=== PATIENT | male | born 1950 | race Caucasian/White ===

== ENCOUNTER 2019-04-02 15:59 | Emergency (ER) | payer SELFPAY ==
[~2019-04-02] VITALS: Ht 167.6 cm; Wt 70.5 kg
[~2019-04-02 15:59] MED LIST: NO HOME MEDICATIONS
[2019-04-02 16:29] VITALS: TEMP 98.6
[2019-04-02] MEDS ORDERED: CATAPRES 0.1MG0.1 MG PO (19:05)
[2019-04-02] MEDS ORDERED: AFRIN 15 ML15 ML NS (19:28)
[2019-04-02 19:40] VITALS: BP 165/98; PULSE 61
== END 2019-04-02 19:40 | disposition home or self-care (01) ==
LOC: COL.ER 15:59
DX: R04.0 Epistaxis (principal)

== ENCOUNTER 2020-11-15 08:50 | Inpatient (IN) | payer OTHER ==
[~2020-11-15] VITALS: Ht 170.2 cm; Wt 56.8 kg
[~2020-11-15 08:50] MED LIST changes: +AFRIN 15 ML15 ML NS; +CATAPRES 0.1MG0.1 MG PO
[2020-11-15 09:24] LABS: HEMATOCRIT 43.3 % (42.0-52.0); HEMOGLOBIN 14.7 g/dl (13.5-18.0); MEAN CELL VOLUME 88 fl (80.0-100.0); MEAN CORPUSCULAR HEMOGLOBIN 30 pg (27.0-31.0); MEAN CORPUSCULAR HGB CONC 34 g/dl (33.0-37.0); MEAN PLATELET VOLUME 9.7 fl (7.4-10.4); PLATELET COUNT 344 K/mm3 (130-400); REDCELL DISTRIBUTION WIDTH-CV 14.1 % (11.5-14.5)
[2020-11-15 09:29] LABS: BILIRUBIN,TOTAL 3.8 mg/dL (0.0-1.0); CALCIUM 7.8 mg/dL (8.4-10.2); TOTAL PROTEIN 6.8 gm/dL (6.4-8.2)
[2020-11-15 09:32] LABS: CREATININE, serum 4.84 (0.66-1.25)
[2020-11-15 09:39] LABS: POTASSIUM 7.9 mmol/L (3.4-5.0)
[2020-11-15 09:58] LABS: C-REACTIVE PROTEIN 39.4 mg/dL (0.0-0.9)
[2020-11-15 10:28] LABS: BAND 41 % (0-10)
[2020-11-15 10:29] LABS: LYMPHOCYTE 12 % (20.0-51.0); METAMYELOCYTE 6 % (0-0); NEUTROPHILS 35 % (42.0-75.2); PLATELET ESTIMATE NORMAL (NORMAL)
[2020-11-15 11:55] VITALS: TEMP 97.1
[2020-11-15 11:55] LABS: COLLECTION METHOD CLEAN CATCH
[2020-11-15 12:13] LABS: MUCOUS Present /lpf; PH 5 (5-8); SQUAMOUS EPITHELIAL None Seen /hpf; URINE APPEARANCE Cloudy; URINE BACTERIA None Seen /hpf; URINE BILIRUBIN Positive (NEGATIVE); URINE BLOOD 2+ (NEGATIVE); URINE COLOR Amber; URINE GLUCOSE Negative (NEGATIVE); URINE KETONE Negative (NEGATIVE); URINE LEUKOCYTE ESTERASE Negative (NEGATIVE); URINE NITRATE Negative (NEGATIVE); URINE PROTEIN(semi-quant) 2+ (NEGATIVE); URINE UROBILINOGEN >=4.0 mg/dL (NEGATIVE)
[2020-11-15 13:15] VITALS: BP 73/59; PULSE 115
--- NOTE | 2020-11-15 13:19 | NUR ---
1315 PT ARRIVES TO ICU 7. PLACED ON ICU BED AND CONNECTED TO ICU TARIFF EXPERT. AT 1319, MONITOR SHOWS ASYSTLE, PULSE CHECK, NO PULSE BY LISA ORTIZ. CPR STARTED. SEE CODE SHEET ON CHART.
[2020-11-15 13:22] VITALS: O2SAT 83; O2SAT 85
--- NOTE | 2020-11-15 13:57 | NUR ---
Initial visit attempt; Patient coding, Manager Reliability offered prayer and Psalm. Patient .
[2020-11-15 14:03] LABS: ARTERIAL BLD GAS O2 SATURATION 90.9 % (92-100); ARTERIAL BLD GAS TCO2 CT 12.6; ARTERIAL BLOOD GAS BASE EXCESS -17.3 (-2-2); ARTERIAL BLOOD GAS HCO3 11.5 meq/L (22-26); ARTERIAL BLOOD GAS PCO2 37.4 mmHg (35-45); ARTERIAL BLOOD GAS PO2 81.5 mmHg (80-100)
--- NOTE | 2020-11-15 14:55 | NUR ---
Patient in ICU. 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 Siblings chose [facility] and social services counselor contacted them. Awaiting clearance from [facility]. Worker gave patient's shirt, wallet, grajeda, and cell phone to patient's brother, Sajan.
--- NOTE | 2020-11-15 15:04 | NUR ---
[facility] notified referral number [id number]. Family has chosem [facility] and body may be released. Cell phone, wallet, grajeda and shirt given to Sajan Akhtar patients brother by Ara Gamez, [employer] work.
--- NOTE | 2020-11-15 15:27 | NUR ---
PATIENT ARRIVED IN ER 11. RT CAME IN AND OBTAINED AN ABG. THEN RT ASSISTED IN INTUBATION. RT HOOKED PATIENT UP TO VENTILATOR. PT INTUBATED 24CM 8.0 ETT AT LIPS. RT COULDN'T OBTAIN SECOND ABG DUE TO NO BLOOD PRESSURE. RT HELPED TRANSFERED PATIENT TO ICU 7. PATIENT CODED AND SHORTLY AFTER.
== END 2020-11-15 15:00 | disposition expired | DRG 871 ==
LOC: COL.ER 08:50 → ICU 11:46
PROVIDERS: Family Medicine; ADMIT Internal Medicine
PROC: 0BH17EZ Insertion of Endotracheal Airway into Trachea, Via Natural or Artificial Opening (ICD-10-PCS; principal; 2020-11-15)
PROC: 5A1935Z Respiratory Ventilation, Less than 24 Consecutive Hours (ICD-10-PCS; 2020-11-15)
DX: A41.9 Sepsis, unspecified organism (principal); R65.21 Severe sepsis with septic shock; J96.01 Acute respiratory failure with hypoxia; K56.49 Other impaction of intestine; N17.9 Acute kidney failure, unspecified; E87.2 Acidosis; I10 Essential (primary) hypertension; Z20.822 Contact with and (suspected) exposure to COVID-19; Z66 Do not resuscitate; Z51.5 Encounter for palliative care; E87.5 Hyperkalemia; D72.829 Elevated white blood cell count, unspecified; R74.01 Elevation of levels of liver transaminase levels
CPT/HCPCS: 99223-AI; 99239; J0610; J0696; J1815; J2405; J3010; J7030; J7060; J7120